=== PATIENT | female | born 1960 | race Caucasian/White ===

== ENCOUNTER 2016-07-21 13:25 | Day surgery (SDC) | payer BC ==
[~2016-07-21] VITALS: Ht 157.5 cm; Wt 70.2 kg
[~2016-07-21 13:25] MED LIST: ASPI-664 PO; OMEP40CA6 PO; TRAM100T27 PO; ZOLP5TAB6 PO
[2016-07-21 15:04] VITALS: Ht 157.5 cm; Wt 70.2 kg
[2016-07-21] MEDS ORDERED: LOSA50TA6 PO (15:11)
[2016-07-21 15:29] VITALS: BP 135/72; PULSE 58; RESP 16
[2016-07-21] MEDS ORDERED: LIDOCAINE 4% SOLUTION 50 ML BTL ONE (15:43)
[2016-07-21] MEDS ORDERED: FENTAnyl 50 MCG/ML VIAL ONE (16:07)
[2016-07-21] MEDS ORDERED: MIDAZOLAM 1 MG/ML 2 ML INJ ONE ×2 (16:07)
--- NOTE | 2016-07-21 18:10 | GILP ---
DATE OF PROCEDURE: 07/21/2016 PREOPERATIVE DIAGNOSIS: Globus-like feeling in the throat with reflux symptoms. PROCEDURE DONE: Esophagogastroduodenoscopy and random biopsy of the stomach. POSTOPERATIVE DIAGNOSIS: Atrophic gastritis, normal esophagus, normal duodenum. DESCRIPTION OF PROCEDURE: The patient was put in left lateral decubitus after obtaining informed co nsent was sedated, monitored oximetry, EKG, blood pressure. She received 3 mg IV Versed and 75 mcg of fentanyl. Posterior pharynx anesthetized with 4% Xylocaine. Advanced Olympus video upper endoscope into the esophagus, stomach and duodenum. Entire esophagus e xamined. It revealed essentially normal mucosa. No abnormality noted. Examination of the stomach showed atrophic gastritis entire stomach, fundus, body and antrum so random biopsies were done. Duo denal bulb easily entered. Examination of the bulb and postbulbar area and second part of the duode num normal. Upon removal of scope, patient had no complications. Plan will be to await for biopsy report and follow up as outpatient. Dictated By: ERIC CLEMENT Conf#: [id number] DID#: [id number] CC: ERIC QUIROZ M.D.; KEYANNA HUDDLESTON MD;*EndCC*
== END 2016-07-22 08:17 | disposition home or self-care (01) ==
LOC: GIL 13:25
PROVIDERS: ATTEND Internal Medicine
DX: K29.30 Chronic superficial gastritis without bleeding (principal); I10 Essential (primary) hypertension
CPT/HCPCS: 43239; 88305; 88312; J2250; J3010; Z7610